=== PATIENT | female | born 2000 | race Caucasian/White ===

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

== ENCOUNTER 2018-07-02 23:21 | Emergency (ER) | payer BC ==
[2018-07-02 23:56] LABS: Urine Appearance Clear; Urine Bacteria Absent (Absent); Urine Bilirubin Negative (Negative); Urine Blood 3+ (Negative); Urine Color Straw; Urine Glucose Negative (Negative); Urine Ketones Negative (Negative); Urine Nitrite Negative (Negative); Urine Protein Negative (Negative); Urine Red Blood Cell Trace(0-2/hpf) (Absent); Urine Specific Gravity 1.005 (1.010-1.030); Urine Squamous Epithelial Cell Present (Absent); Urine Urobilinogen Negative (Negative); Urine White Blood Cell 3+(>20/hpf) (Absent)
[2018-07-03] MEDS ORDERED: Sulfamethox/Trimethoprim DS 800/160* TAB PO ONE (00:15)
[2018-07-03] MEDS ORDERED: Phenazopyridine TAB* 100 MG PO ONE (00:30)
--- NOTE | 2018-07-03 00:32 | ED ---
GI/ HPI - HPI Summary HPI Summary: Patient complains of increased urinary frequency and burning with urination starting today. Denies fever, cough, sore throat, CP, SOB, N/V/D, abdominal pain, change in BM for vaginal symptoms. - History of Current Complaint Chief Complaint: EDUrogenitalProblems Time Seen by Provider: 07/03/18 00:14 Stated Complaint: "UTI" PER PT Hx Obtained From: Patient Hx Last Menstrual Period: currently menstruating Onset/Duration: Started Hours Ago Timing: Constant Severity: Moderate Current Severity: Moderate Pain Intensity: 4 Associated Signs and Symptoms: Positive: Dysuria - Allergy/Home Medications Allergies/Adverse Reactions: Allergies Allergy/AdvReac Type Severity Reaction Status Date / Time MS Amoxicillin Allergy Unknown Verified 07/02/18 23:27 [From Augmentin] Reaction Details MS Clavulanic Acid Allergy Unknown Verified 07/02/18 23:27 [From Augmentin] Reaction Details PMH/Surg Hx/FS Hx/Imm Hx Endocrine/Hematology History: Denies: Hx Diabetes, Hx Thyroid Disease Cardiovascular History: Denies: Hx Hypertension Respiratory History: Denies: Hx Asthma, Hx Chronic Obstructive Pulmonary Disease (COPD) GI History: Denies: Hx Ulcer History: Denies: Hx Dialysis Sensory History: Denies: Hx Eye Prosthesis Opthamlomology History: Denies: Hx Legally Blind EENT History: Denies: Hx Deafness Neurological History: Denies: Hx Dementia Psychiatric History: Denies: Hx Autism - Surgical History Surgery Procedure, Year, and Place: n/a - Immunization History Date of Tetanus Vaccine: UTD Date of Influenza Vaccine: october 2015 Infectious Disease History: No Infectious Disease History: Denies: Hx Clostridium Difficile, Hx Hepatitis, Hx Human Immunodeficiency Virus (HIV), Hx of Known/Suspected MRSA, Hx Shingles, Hx Tuberculosis, Hx Known/ Suspected VRSA, History Other Infectious Disease, Traveled Outside the [place] in Last 30 Days - Family History Known Family History: Positive: None Negative: Respiratory Disease - Social History Alcohol Use: None Substance Use Type: Reports: None Smoking Status (MU): Never Smoked Tobacco Review of Systems Constitutional: Negative Eyes: Negative ENT: Negative Cardiovascular: Negative Respiratory: Negative Gastrointestinal: Negative Positive: burning, urgency Musculoskeletal: Negative Skin: Negative Neurological: Negative Psychological: Normal All Other Systems Reviewed And Are Negative: Yes Physical Exam - Summary Physical Exam Summary: Abdomen soft nontender. Triage Information Reviewed: Yes Vital Signs On Initial Exam: Initial Vitals Temp Pulse Resp BP Pulse Ox 98.2 F 93 16 126/72 100 07/02/18 23:26 07/02/18 23:26 07/02/18 23:26 07/02/18 23:07/02/18 23:26 Vital Signs Reviewed: Yes Appearance: Positive: Well-Appearing Skin: Positive: Warm Head/Face: Positive: Normal Head/Face Inspection Eyes: Positive: Normal Neck: Positive: Supple Respiratory/Lung Sounds: Positive: Clear to Auscultation Cardiovascular: Positive: Normal Abdomen Description: Positive: Nontender Musculoskeletal: Positive: Normal Neurological: Positive: Normal Psychiatric: Positive: Normal AVPU Assessment: Alert - Landon Coma Scale Best Eye Response: 4 - Spontaneous Best Motor Response: 6 - Obeys Commands Best Verbal Response: 5 - Oriented Coma Scale Total: 15 Diagnostics - Vital Signs Vital Signs Temp Pulse Resp BP Pulse Ox 07/02/18 23:26 98.2 F 93 16 126/72 100 - Laboratory Lab Results: Lab Results 07/02/18 Range/Units 23:44 Urine Color Straw Urine Appearance Clear Urine pH 6.0 (5-9) Ur Specific [place] 1.005 L (1.010-1.030) Urine Protein Negative (Negative) Urine Ketones Negative (Negative) Urine Blood 3+ A (Negative) Urine Nitrate Negative (Negative) Urine Bilirubin Negative (Negative) Urine Urobilinogen Negative (Negative) Ur Leukocyte Esterase Trace A (Negative) Urine WBC (Auto) 3+(>20/hpf) A (Absent) Urine RBC (Auto) Trace(0-2/hpf) (Absent) Ur Squamous Epith Cells Present A (Absent) Urine Bacteria Absent (Absent) Urine Glucose Negative (Negative) Lab Statement: Any lab studies that have been ordered have been reviewed, and results considered in the medical decision making process. GIGU Course/Dx - Course Course Of Treatment: Patient complains of increased urinary frequency and burning with urination starting today. Denies fever, cough, sore throat, CP, SOB, N/V/D, abdominal pain, change in BM for vaginal symptoms. Physical exam: Abdomen soft nontender. Urine positive for UTI. Cultures pending. Rx for Bactrim and Pyridium. - Diagnoses Provider Diagnoses: UTI (urinary tract infection) Discharge - Sign-Out/Discharge Documenting (check all that apply): Patient Departure Patient Received Moderate/Deep Sedation with Procedure: No - Discharge Plan Condition: Stable Disposition: HOME Prescriptions: Phenazopyridine TAB* [Pyridium 100 mg TAB*] 100 mg PO TID 6 Days #6 tab Sulfamethox/Trimethoprim DS* [Bactrim DS 800/160 TAB*] 1 tab PO BID 10 Days #20 tab Sulfamethox/Trimethoprim DS* [Bactrim DS 800/160 TAB*] 1 tab PO BID 10 Days #20 tab Patient Education Materials: Urinary Tract Infection in Women (ED) Referrals: Janette Giraldo DO [Primary Care Provider] - Additional Instructions: Take antibiotics and Pyridium as directed. Return to the ED for any new or worsening symptoms. - Billing Disposition and Condition Condition: STABLE Disposition: Home
[2018-07-03 00:49] VITALS: BP 106/68
== END 2018-07-03 00:48 | disposition home or self-care (01) ==
LOC: ED 23:21
DX: N39.0 Urinary tract infection, site not specified (principal); Z88.1 Allergy status to other antibiotic agents; Z88.0 Allergy status to penicillin
CPT/HCPCS: 81003; 81015; 87077; 87086; 87186; 99282; A9270-GY

== ENCOUNTER 2019-03-31 11:43 | Emergency (ER) | payer BC ==
--- OUTSIDE RECORDS SUMMARY | 2019-03-31 11:57 | XMS REPORT | Continuity of Care Document ---
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 Onset: 11/12/2015 Major depressive disorder Janette Giraldo D.O. Onset: 11/12/2015 Social History Type Date Description Comments Sex Unknown Tobacco Use Start: Unknown Patient has never smoked Allergies, Adverse Reactions, Alerts Active Allergies Reaction Severity Comments Date Augmentin rash 02/06/2006 Biaxin vomitting 02/12/2010 Medications Active Medications SIG Qnty Indications Ordering Provider Date Ondansetron 1 tab by mouth, 8tabs A08.39 Yesi Estrada, 03/30/2019 4mg Tablets q6-8 hours as C.P.N.P. Dispers needed for vomiting/nausea Naproxen Sodium Take One Tablet 30tabs N94.6 Janette Giraldo, 12/11/2018 550mg By Mouth Twice D.O. Tablets Daily as Needed For Pain CBD Use as needed Janette Giraldo, 11/29/2018 D.OSilas Citalopram take 1 & 1/2 135tabs F41.3 Janette Giraldo, 11/25/2015 Hydrobromide (one & one-half) D.O. 20mg tablets by mouth Tablets once daily F32.9 F41.8 Nexplanon Unknown 02/24/2015 68mg Implant Magnesium Oxide take two tablets by 180tabs Ross Carter.OSilas 2013 mouth once daily 400(241.3mg) mg Tablets Melatonin 1 by mouth at F51.09 Unknown 5mg Tablets bedtime Vitamin D3 1 by mouth daily E55.9 Unknown 400Unit Chewtabs B Complex Unknown Capsules Medications Administered in Office Medication SIG Qnty Indications Ordering Provider Date Ondansetron 1 tab by 8tabs A08.39 Yesi Estrada, 03/30/2019 4mg Tablets mouth, now C.P.N.P. Dispers TB Intradermal Test Nurses Main Office 01/29/2019 Injection TB Azeb Test Lexx Sun M.D. 07/08/1999 Injection Immunizations CPT Code Status Date Vaccine Lot # [id number] Given 11/29/2018 Flu Inj Quad 6mo+ all doses/ages [] [id number] 74340 Given 11/29/2018 Hepatitis A Vaccine Adult Dose age 19+ [id number] 58124 Given 11/12/2015 Meningococcal A,C,Y,W135 (Menactra) Preservative [id number] Free 96667 Given 11/12/2015 Flu Inj Quadrivalent .5ml Preserve Free [id number] 19670 Given 05/07/2015 Flu Mist Quadrivalent [id number] 40002 Given 02/15/2013 Flu Mist Quadrivalent [id number] 54923 Given 06/12/2012 HPV 4 Gardasil 4 [id number] 69292 Given 12/01/2011 Flu Vacc Nasal Mist Trivalent (FluMist) [id number] 00192 Given 12/01/2011 HPV 4 Gardasil 4 [id number] 82854 Given 08/23/2011 HPV 4 Gardasil 4 [id number] 26994 Given 08/23/2011 Meningococcal A,C,Y,W135 (Menactra) Preservative [id number] Free 92132 Given 12/15/2010 Flu Vacc Nasal Mist Trivalent (FluMist) [id number] 02755 Given 10/09/2009 TdaP Immunization Age 7+ [id number] 69589 Given 10/09/2009 Flu Vacc Nasal Mist Trivalent (FluMist) [id number] 65467 Given 11/05/2008 Varicella (Chicken Pox) Immunization [id number] 13057 Given 11/05/2008 Flu Vacc Nasal Mist Trivalent (FluMist) [id number] 87620 Given 12/11/2007 Flu Vacc Nasal Mist Trivalent (FluMist) [id number] 53465 Given 01/02/2007 Flu Vacc Nasal Mist Trivalent (FluMist) [id number] 93816 Given 01/10/2006 Flu Vacc Nasal Mist Trivalent (FluMist) [id number] 06574 Given 01/13/2005 Flu Vacc Nasal Mist Trivalent (FluMist) 21431 Given 12/07/2002 Poliomyelitis Immunization 11249 Given 12/07/2002 MMR Virus Immunization 90813 Given 12/07/2002 DTaP Immunization under age 7 40834 Given 09/27/2000 Pneumococcal 7valent - Prevnar 68044 Given 05/02/2000 Pneumococcal 7valent - Prevnar 60978 Given 01/15/2000 DTaP & Hib Immunization 01523 Given 01/15/2000 MMR Virus Immunization 56461 Given 10/09/1999 Poliomyelitis Immunization 12457 Given 10/09/1999 Varicella (Chicken Pox) Immunization 74479 Given 04/03/1999 Hib/Hep B Combination Vaccine 56144 Given 04/03/1999 DTaP Immunization under age 7 81234 Given 01/22/1999 Hib/Hep B Combination Vaccine 27743 Given 01/22/1999 Poliomyelitis Immunization 55326 Given 01/22/1999 DTaP Immunization under age 7 48903 Given 1998 Hib/Hep B Combination Vaccine 60444 Given 1998 Poliomyelitis Immunization 84345 Given 1998 DTaP Immunization under age 5 Vital Signs Date Vital Result Comment 03/30/2019 12:27pm Weight 106.00 lb Weight 48.082 kg Body Temperature 98.1 F 11/29/2018 11:18am Height 61.75 inches 5'1.75" Weight 103.00 lb Weight 46.721 kg Heart Rate 74 /min BP Systolic 124 mmHg BP Diastolic 82 mmHg BMI (Body Mass Index) 19.0 kg/m2 Right ear audiology results 20 db Left ear audiology results 20 db Left Visual Acuity Distance 20/20 Right Visual Acuity Distance 20/20 Results Test Acquired Date Facility Test Result H/L Range Note Comp Metabolic 01/29/2019 [facility] Sodium 137 mmol/L Normal 135-[address] [place] [address] [phone] Potassium 4.2 mmol/L Normal 3.5-5.0 Chloride 103 mmol/L Normal 101-111 Co2 Carbon Dioxide 28 mmol/L Normal 22-32 Anion Gap 6 mmol/L Normal 2-11 Glucose 85 mg/dL Normal 70-100 Blood Urea Nitrogen 14 mg/dL Normal 6-24 Creatinine 0.69 mg/dL Normal 0.51-0.95 BUN/Creatinine Ratio 20.3 High 8-20 Calcium 9.6 mg/dL Normal 8.6-10.3 Total Protein 7.3 g/dL Normal 6.4-8.9 Albumin 4.8 g/dL Normal 3.2-5.2 Globulin 2.5 g/dL Normal 2-4 Albumin/Globulin Ratio 1.9 Normal 1-3 Total Bilirubin 0.40 mg/dL Normal 0.2-1.0 Alkaline Phosphatase 48 U/L Normal 34-104 Alt 10 U/L Normal 7-52 Ast 16 U/L Normal 13-39 Egfr Non- 108.5 >60 Egfr 131.2 >60 1 Lipid Profile 01/29/2019 [facility] Triglycerides 98 mg/dL 2 (Trig/Chol/HDL) [address] [place] [address] [phone] Cholesterol 122 mg/dL 3 HDL Cholesterol 51.1 mg/dL 4 LDL Cholesterol 51 mg/dL 5 Laboratory test 01/29/2019 [facility] Magnesium 2.0 mg/dL Normal 1.9-2.7 finding [address] [place] [address] [phone] Ferritin 31.8 ng/mL Normal 11-307 TSH (Thyroid Stim Horm) 1.01 mcIU/mL Normal 0.34-5.60 Vitamin D Total 25(Oh) 23.8 ng/mL Normal 20-50 6 CBC Auto 01/29/2019 [facility] White Blood 11.6 10^3/uL High 3.5-10.[address] [place] [address] [phone] Red Blood Count 4.53 10^6/uL Normal 3.70-4.87 Hemoglobin 14.0 g/dL Normal 12.0-16.0 Hematocrit 41 % Normal 35-47 Mean Corpuscular Volume 90 fL Normal 80-97 Mean Corpuscular Hemoglobin 31 pg Normal 27-31 Mean Corpuscular HGB Conc 34 g/dL Normal 31-36 Red Cell Distribution Width 13 % Normal 10-15 Platelet Count 293 10^3/uL Normal 150-450 Mean Platelet Volume 7.8 fL Normal 7.4-10.4 Abs Neutrophils 8.5 10^3/uL High 1.5-7.7 Abs Lymphocytes 1.8 10^3/uL Normal 1.0-4.8 Abs Monocytes 0.8 10^3/uL Normal 0-0.8 Abs Eosinophils 0.3 10^3/uL Normal 0-0.6 Abs Basophils 0.1 10^3/uL Normal 0-0.2 Abs Nucleated RBC 0.0 10^3/uL Granulocyte % 73.7 % Lymphocyte % 15.8 % Monocyte % 7.1 % Eosinophil % 2.7 % Basophil % 0.7 % Nucleated Red Blood Cells % 0.2 1 Because ethnic data is not always readily available, this report includes an eGFR for both -Americans and non- Americans. The National Kidney Disease Education Program (NKDEP) does not endorse the use of the MDRD equation for patients that are not between the ages of 18 and 70, are , have extremes of body size, muscle mass, or nutritional status, or are non- or non-. According to the National Kidney Foundation, irrespective of diagnosis, the stage of the disease is based on the level of kidney function: Stage Description GFR(mL/min/1.73 m(2)) 1 Kidney damage with normal or decreased GFR 90 2 Kidney damage with mild decrease in GFR 60-89 3 Moderate decrease in GFR 30-59 4 Severe decrease in GFR 15-29 5 Kidney failure <15 (or dialysis) 2 Desirable: <150 Borderline High: 150-199 High: 200-499 Very High: >500 3 Desirable: <200 Borderline High: 200-239 High: >239 4 Low: <40 Desirable: 40-60 High: >60 5 Desirable: <100 Near Optimal: 100-129 Borderline High: 130-159 High: 160-189 Very High: >189 6 Total 25-Hydroxyvitamin D2 and D3 (25-OH-VitD) <10 ng/mL (severe deficiency) 10-19 ng/mL (mild to moderate deficiency) 20-50 ng/mL (optimum levels) 51-80 ng/mL (increased risk of hypercalciuria) >80 ng/mL (toxicity possible) Procedures Description No Information Available Medical Devices Description No Information Available Encounters Type Date Location Provider Dx Diagnosis Office Visit 11/29/2018 [facility] Janette Giraldo D.O. Z00.01 Encounter for 11:15a general adult medical exam w abnormal findings F41.8 Other specified anxiety disorders F32.9 Major depressive disorder, single episode, unspecified Assessments Date Code Description Provider 03/30/2019 A08.39 Other viral enteritis Madelyn FryeP.N.PSilas 01/29/2019 Z11.1 Encounter for screening for respiratory Nurses Main Office tuberculosis 11/29/2018 Z00.01 Encounter for general adult medical Janette Giraldo D.O. examination with abnormal findings 11/29/2018 F41.8 Other specified anxiety disorders Janette Giraldo D.O. 11/29/2018 F32.9 Major depressive disorder, single Janette Giraldo D.O. episode, unspecified Plan of Treatment 03/30/2019 - Dee Dee Frye.P.N.P.A08.39 Other viral enteritisNew Medication:Ondansetron 4 mg - 1 tab by mouth, nowOndansetron 4 mg - 1 tab by mouth, q6-8 hours as needed for vomiting/nauseaComments:Appears to be viral.Zofran given in office. Next dose of Zofran 6-8PM as neededNext 24-48 hours fluids, water, Pedialyte, or half water/half Gatorade then advance to Normal bland food as tolerated,avoid greasy foods.Avoid fruit juices.Voiding should be once ever 3-4 hours.Maintain hydration, monitor for worsening stool symptoms severe diarrhea, blood in stools or mucus. increase probiotic intake.Monitor pain if severe and cannot walk then go to the ER.Follow up:as needed for new or worsening symptoms Functional Status Description No Information Available Mental Status Description No Information Available Referrals Description No Information Available
[2019-03-31] MEDS ORDERED: NS 0.9% 1000 ML** 1,000 ML IV ONE (11:59)
[2019-03-31] MEDS ORDERED: Ondansetron INJ* 2 MG/ML VIAL IV ONE (11:59)
[2019-03-31 12:15] LABS: ABS Eosinophils 0.1 10^3/ul (0-0.6); ABS Lymphocytes 1.1 10^3/ul (1.0-4.8); ABS Monocytes 0.8 10^3/ul (0-0.8); ABS Neutrophils 3.1 10^3/ul (1.5-7.7); Eosinophil % 2.7 %; Hematocrit 41 % (35-47); Hemoglobin 14.3 g/dL (12.0-16.0); Lymphocyte % 20.7 %; Mean Corpuscular HGB Conc 35 g/dL (31-36); Mean Corpuscular Hemoglobin 31 pg (27-31); Mean Corpuscular Volume 88 fL (80-97); Mean Platelet Volume 7.6 fL (7.4-10.4); Nucleated Red Blood Cells % 0.1; Platelet Count 264 10^3/uL (150-450); Red Blood Count 4.63 10^6 /uL (3.70-4.87); Red Cell Distribution Width 13 % (10-15); White Blood Count 5.1 10^3/uL (3.5-10.8)
[2019-03-31 12:44] LABS: ALT 15 U/L (7-52); AST 22 U/L (13-39); Albumin 4.8 g/dL (3.2-5.2); Albumin/Globulin Ratio 1.7 (1-3); Alkaline Phosphatase 55 U/L (34-104); Anion Gap 7 mmol/L (2-11); BUN/Creatinine Ratio 13.5 (8-20); Blood Urea Nitrogen 10 mg/dL (6-24); CO2 Carbon Dioxide 26 mmol/L (22-32); Calcium 9.3 mg/dL (8.6-10.3); Chloride 104 mmol/L (101-111); EGFR African American 121.1 (>60); EGFR Non-African American 100.1 (>60); Globulin 2.9 g/dL (2-4); Glucose 102 mg/dL (70-100); Potassium 3.6 mmol/L (3.5-5.0); Sodium 137 mmol/L (135-145); Total Protein 7.7 g/dL (6.4-8.9)
[2019-03-31 12:51] LABS: HCG Pregnancy < 0.60 mIU/mL
[2019-03-31 14:56] VITALS: BP 124/76
--- NOTE | 2019-04-01 06:00 | ED ---
Nausea/Vomiting/Diarrhea HPI - HPI Summary HPI Summary: Patient presents to the ED with N/V/D x 3 days. Feels dehydrated. Patient was able to see her physician, Dr. Giraldo yesterday. She states since she is still having diarrhea, she feels she is becoming dehydrated. She states nausea and vomiting only happened for the first day, however has had diarrhea for 3 days. She states the stool is malodorous and yellow in color. She denies any known sick contacts. Denies any hematemesis, melena, hematochezia. Denies fevers, sweats, chills. Denies any chance of . No urinary symptoms. Currently on her menses. She reports no abdominal pain. - History of Current Complaint Chief Complaint: EDNauseaVomitDiarrh Stated Complaint: GENERAL PER PT Time Seen by Provider: 03/31/19 11:53 Hx Obtained From: Patient Hx Last Menstrual Period: currently menstruating ?: No Onset/Duration: Sudden Onset Pain Intensity: 0 Pain Scale Used: 0-10 Numeric Aggravating Factor(s): Nothing Alleviating Factor(s): Nothing Vomiting Frequency: Every 1-2 hours Nausea/Vomiting Duration: 0-12 hours Diarrhea Presence: Yes Diarrhea Frequency: Every 3-4 hours Diarrhea Duration: 24-36 hours Diarrhea Characteristics: Malodorous - Risk Factors Influenza Risk Factors: Negative Surgical Obstruction Risk Factor(s): Negative - Allergies/Home Medications Allergies/Adverse Reactions: Allergies Allergy/AdvReac Type Severity Reaction Status Date / Time MS Amoxicillin Allergy Unknown Verified 03/31/19 12:46 [From Augmentin] Reaction Details Home Medications: Home Medications Cholecalciferol TAB* [Vitamin D TAB*] 5,000 unit PO DAILY 08/08/14 [History Confirmed 05/02/16] Citalopram TAB* [Celexa TAB*] 15 mg PO DAILY 08/08/14 [History Confirmed ] Ibuprofen TAB* [Advil TAB*] 200 mg PO ONCE PRN 08/08/14 [History Confirmed 05/02] Magnesium [Magnesium Oxide] 2 tab PO DAILY 08/08/14 [History Confirmed 05/02/16] metroNIDAZOLE [Flagyl 500 MG TAB] 500 mg PO BID #14 tab 06/29/16 [Rx] Cyclobenzaprine TAB* [Flexeril 10 MG TAB*] 10 mg PO TID PRN #15 tab 03/30/17 [Rx ] Ibuprofen TAB* [Motrin TAB* 600 MG] 600 mg PO Q6H PRN #15 tab 03/30/17 [Rx] Phenazopyridine TAB* [Pyridium 100 mg TAB*] 100 mg PO TID 6 Days #6 tab [Rx] Sulfamethox/Trimethoprim DS* [Bactrim DS 800/160 TAB*] 1 tab PO BID 10 Days #20 tab 07/03/18 [Rx] Sulfamethox/Trimethoprim DS* [Bactrim DS 800/160 TAB*] 1 tab PO BID 10 Days #20 tab 07/03/18 [Rx] PMH/Surg Hx/FS Hx/Imm Hx Previously Healthy: Yes Endocrine/Hematology History: Denies: Hx Diabetes, Hx Thyroid Disease Cardiovascular History: Denies: Hx Hypertension Respiratory History: Denies: Hx Asthma, Hx Chronic Obstructive Pulmonary Disease (COPD) GI History: Denies: Hx Ulcer History: Denies: Hx Dialysis Sensory History: Denies: Hx Eye Prosthesis, Hx Legally Blind, Hx Deafness Opthamlomology History: Denies: Hx Eye Prosthesis, Hx Legally Blind Neurological History: Denies: Hx Dementia Psychiatric History: Denies: Hx Autism - Surgical History Surgery Procedure, Year, and Place: n/a - Immunization History Date of Tetanus Vaccine: UTD Date of Influenza Vaccine: october 2015 Hx Pertussis Vaccination: No Immunizations Up to Date: Yes Infectious Disease History: No Infectious Disease History: Denies: Hx Clostridium Difficile, Hx Hepatitis, Hx Human Immunodeficiency Virus (HIV), Hx of Known/Suspected MRSA, Hx Shingles, Hx Tuberculosis, Hx Known/ Suspected VRSA, History Other Infectious Disease, Traveled Outside the [place] in Last 30 Days - Family History Known Family History: Positive: None Negative: Respiratory Disease - Social History Occupation: Employed Full-time Lives: With Family Alcohol Use: None Hx Substance Use: No Substance Use Type: Reports: None Smoking Status (MU): Never Smoked Tobacco Review of Systems Negative: Fever, Chills, Fatigue, Skin Diaphoresis Negative: Palpitations, Chest Pain Negative: Shortness Of Breath, Cough Positive: Vomiting, Diarrhea, Nausea. Negative: Abdominal Pain Genitourinary: Negative Positive: no symptoms reported, see HPI Negative: Arthralgia, Myalgia Skin: Negative Neurological/Mental Status: Negative All Other Systems Reviewed And Are Negative: Yes Physical Exam Triage Information Reviewed: Yes Vital Signs On Initial Exam: Initial Vitals Temp Pulse Resp BP Pulse Ox 98.2 F 74 18 139/97 98 03/31/19 11:44 03/31/19 11:44 03/31/19 11:44 03/31/19 11:44 03/31/19 11:44 Vital Signs Reviewed: Yes Appearance: Positive: Well-Appearing, Well-Nourished Skin: Positive: Warm, Skin Color Reflects Adequate Perfusion Eyes: Positive: EOMI, DELIA, Conjunctiva Clear Neck: Positive: Supple, Nontender, No Lymphadenopathy Respiratory/Lung Sounds: Positive: Clear to Auscultation, Breath Sounds Present Cardiovascular: Positive: RRR, Pulses are Symmetrical in both Upper and Lower Extremities Musculoskeletal: Positive: Normal, Strength/ROM Intact Psychiatric: Positive: Normal, Affect/Mood Appropriate AVPU Assessment: Alert Procedures - Sedation Patient Received Moderate/Deep Sedation with Procedure: No Diagnostics - Vital Signs Vital Signs Temp Pulse Resp BP Pulse Ox 03/31/19 14:56 98.3 F 72 16 124/76 98 03/31/19 14:50 71 124/76 95 03/31/19 14:32 72 123/70 98 03/31/19 14:02 72 104/67 98 03/31/19 14:00 73 99 03/31/19 13:31 60 126/81 100 03/31/19 13:02 67 124/90 98 03/31/19 13:01 65 99 03/31/19 11:44 98.2 F 74 18 139/97 98 - Laboratory Lab Results: Lab Results 03/31/19 03/31/19 Range/Units 12:08 12:08 WBC 5.1 (3.5-10.8) 10^3/uL RBC 4.63 (3.70-4.87) 10^6 /uL Hgb 14.3 (12.0-16.0) g/dL Hct 41 (35-47) % MCV 88 (80-97) fL MCH 31 (27-31) pg MCHC 35 (31-36) g/dL RDW 13 (10-15) % Plt Count 264 (150-450) 10^3/uL MPV 7.6 (7.4-10.4) fL Neut % (Auto) 59.5 % Lymph % (Auto) 20.7 % [place] % (Auto) 16.3 % Eos % (Auto) 2.7 % Baso % (Auto) 0.8 % Absolute Neuts (auto) 3.1 (1.5-7.7) 10^3/ul Absolute Lymphs (auto) 1.1 (1.0-4.8) 10^3/ul Absolute Monos (auto) 0.8 (0-0.8) 10^3/ul Absolute Eos (auto) 0.1 (0-0.6) 10^3/ul Absolute Basos (auto) 0.0 (0-0.2) 10^3/ul Absolute Nucleated RBC 0.0 10^3/ul Nucleated RBC % 0.1 Sodium 137 (135-145) mmol/L Potassium 3.6 (3.5-5.0) mmol/L Chloride 104 (101-111) mmol/L Carbon Dioxide 26 (22-32) mmol/L Anion Gap 7 (2-11) mmol/L BUN 10 (6-24) mg/dL Creatinine 0.74 (0.51-0.95) mg/dL Est GFR ( Amer) 121.1 (>60) Est GFR (Non-Af Amer) 100.1 (>60) BUN/Creatinine Ratio 13.5 (8-20) Glucose 102 H (70-100) mg/dL Calcium 9.3 (8.6-10.3) mg/dL Total Bilirubin 0.30 (0.2-1.0) mg/dL AST 22 (13-39) U/L ALT 15 (7-52) U/L Alkaline Phosphatase 55 (34-104) U/L Total Protein 7.7 (6.4-8.9) g/dL Albumin 4.8 (3.2-5.2) g/dL Globulin 2.9 (2-4) g/dL Albumin/Globulin Ratio 1.7 (1-3) Beta HCG, Quant < 0.60 mIU/mL Result Diagrams: 03/31/19 12:08 03/31/19 12:08 Lab Statement: Any lab studies that have been ordered have been reviewed, and results considered in the medical decision making process. Naus/Vom/Diarrhea Course/Dx - Course Course Of Treatment: Physical examination, patient appears well. She is nondiaphoretic nontoxic-appearing. Labs obtained which are WNL. Patient is given 1 L fluids. She states she is not nauseous at this time. She is unable to give a stool sample while in the ED. While the differential includes C. difficile, this is less likely given the fact that the patient is unable to give a stool sample. She does have Zofran at home and states she will take that if she continues to have nausea. She will follow back up with Dr. Giraldo return to the ED. was negative. - Differential Dx/Diagnosis Differential Diagnoses - Female: Other - viral syndrome, gastroenteritis, dehydration Provider Diagnosis: Nausea & vomiting, Diarrhea Condition At Discharge: Stable Discharge ED - Sign-Out/Discharge Documenting (check all that apply): Patient Departure - Discharge Plan Condition: Stable Disposition: HOME Patient Education Materials: Dehydration (ED) Referrals: Janette Giraldo DO [Primary Care Provider] - Additional Instructions: Drink plenty of fluids - Billing Disposition and Condition Condition: STABLE Disposition: Home - Attestation Statements Provider Attestation: I was available for consult. This patient was seen by the ESTELA. The patient was not presented to, seen by, or examined by me. Champ Ashley MD
== END 2019-03-31 14:56 | disposition home or self-care (01) ==
LOC: ED 11:43
DX: R11.2 Nausea with vomiting, unspecified (principal); R19.7 Diarrhea, unspecified; Z88.0 Allergy status to penicillin; Z79.899 Other long term (current) drug therapy
CPT/HCPCS: 36415; 80053; 84702; 85025; 96361; 96374; 99283